=== PATIENT | male | born 1950 | race Caucasian/White ===

== ENCOUNTER 2017-11-13 08:50 | Inpatient (IN) ==
[2017-11-13] MEDS ORDERED: METOPROLOL TARTRATE 25 MG TABLET ONE (10:14)
[2017-11-13] MEDS ORDERED: HYDROmorphone 2 MG/1 ML VIAL ONE (10:14)
[2017-11-13] MEDS ORDERED: HYDROmorphone 2 MG/1 ML VIAL IV STA (10:15)
[2017-11-13] MEDS ORDERED: METOPROLOL TARTRATE 50 MG TABLET PO STA (10:16)
[2017-11-13] MEDS ORDERED: ONDANSETRON 4 MG/2 ML VIAL ONE (10:23)
[2017-11-13] MEDS ORDERED: diphenhydrAMINE CAP 25 MG CAPSULE PO PRN (10:26)
[2017-11-13] MEDS ORDERED: ACETAMINOPHEN 325 MG TABLET PO PRN (10:26)
[2017-11-13] MEDS ORDERED: guaiFENesin/DM ER 600-30 MG TABLET PO PRN (10:26)
[2017-11-13] MEDS ORDERED: ONDANSETRON 4 MG/2 ML VIAL IV PRN (10:26)
[2017-11-13] MEDS ORDERED: ONDANSETRON 4 MG/2 ML VIAL IV STA (10:27)
[2017-11-13] MEDS ORDERED: METOPROLOL TARTRATE 50 MG TABLET PO SCH (10:30)
[2017-11-13] MEDS: SODIUM CHLORIDE 0.9% 1,000 ML IV SCH ×2 (12:36→18:55)
[2017-11-13] MEDS: metroNIDAZOLE INJ 500 MG in PREMIX 1 EACH IV SCH ×2 (12:42→18:54)
[2017-11-13] MEDS: PANTOPRAZOLE 40 MG TABLET PO SCH (12:42)
[2017-11-13 12:43] LABS: Apearance,Urine CLEAR (Clear); Bilirubin,Urine Negative (Negative); Blood, Urine Small mg/dL (Negative); Glucose,Urine (UA) Negative (Negative); Ketones,Urine 5 mg/dL (Negative); Mucus,Urine Few /LPF (Occasional); Nitrite,Urine Negative (Negative); Protein,Urine Negative; RBC,Urine 1 /HPF (0-4); Squamous Epithelial Cell,Urine Occasional /HPF (0-10); Urine Color Yellow (Yellow); Urine Specific Gravity 1.014 (1.001-1.035); Urine Urobilinogen < 2.0 EU/DL (0.2-1.0); WBC,Urine 1 /HPF (0-6)
[2017-11-13] MEDS: DOCUSATE SODIUM 100 MG CAPSULE PO PRN (13:51)
[2017-11-13] MEDS: FLUTICASONE 50 MCG NASAL SPRAY 16 GM BOTTLE BOTH NARES SCH (13:51)
[2017-11-13] MEDS: ASPIRIN EC 81 MG TABLET PO SCH (13:51)
[2017-11-13] MEDS: AMPICILLIN/SULBACTAM 3,000 MG in SODIUM CHLORIDE 0.9% 100 ML IV SCH ×2 (15:09→20:30)
[2017-11-13] MEDS: MORPHINE 4 MG/1 ML VIAL IV PRN ×2 (16:32→21:09)
[2017-11-13] MEDS ORDERED: MELATONIN 3 MG TABLET PO PRN (21:00)
[2017-11-13] MEDS: ENOXAPARIN 40 MG/0.4 ML SYRINGE SUBCUT SCH (21:13)
[2017-11-13] MEDS: MONTELUKAST 10 MG TABLET PO SCH (21:13)
[2017-11-13] MEDS: LISINOPRIL 20 MG TABLET PO SCH (21:13)
[2017-11-13] MEDS: METOPROLOL TARTRATE 50 MG TABLET PO SCH (21:13)
[2017-11-13] MEDS: SIMVASTATIN 10 MG TABLET PO SCH (21:13)
[2017-11-14] MEDS: metroNIDAZOLE INJ 500 MG in PREMIX 1 EACH IV SCH ×4 (00:25→20:36)
[2017-11-14] MEDS: AMPICILLIN/SULBACTAM 3,000 MG in SODIUM CHLORIDE 0.9% 100 ML IV SCH ×3 (01:36→14:58)
[2017-11-14] MEDS: SODIUM CHLORIDE 0.9% 1,000 ML IV SCH ×3 (01:37→20:51)
[2017-11-14 06:33] LABS: Basophils % 0.3 % (0.0-0.8); Eosinophils # 0.2 10*3/uL (0.0-0.87); Eosinophils % 1.9 % (0.00-10.9); Hemoglobin 12.9 GM/DL (14.0-18.0); Immature Granulocytes % 0.2 %; Immature Granulocytes Absolute 0.02 #; Lymphocytes # 1.1 10*3/uL (1.4-4.0); Lymphocytes % 12.9 % (21.2-54.2); Mean Corpuscular HGB Conc 33.1 GM/DL (32-36); Mean Corpuscular Hemoglobin 30 PG (27-34); Mean Platelet Volume 10.4 FL (9.6-12.0); Monocytes # 0.9 10*3/uL (0.11-0.8); Monocytes % 10.6 % (1.7-12.7); Neutrophils # 6.5 10*3/uL (1.4-7.4); Neutrophils % 74.1 % (38.7-73.9); Platelet Count 170 T/CUMM (130-400); Red Blood Count 4.24 MC/CUMM (3.8-5.5); Red Cell Distribution Width 12.6 % (9.3-17.3); White Blood Count 8.8 T/CUMM (4-12)
[2017-11-14 07:06] LABS: Albumin 2.9 G/DL (3.4-5.0); Osmolality,Calculated 280.1 MOS/KG (273-304); Potassium 3.6 MMOL/L (3.5-5.1); Risk Ratio 2.48
[2017-11-14] MEDS: DOCUSATE SODIUM 100 MG CAPSULE PO PRN (09:12)
[2017-11-14] MEDS: ASPIRIN EC 81 MG TABLET PO SCH (09:12)
[2017-11-14] MEDS: LISINOPRIL 20 MG TABLET PO SCH ×2 (09:12→20:38)
[2017-11-14] MEDS: METOPROLOL TARTRATE 50 MG TABLET PO SCH ×2 (09:13→20:38)
[2017-11-14] MEDS: FLUTICASONE 50 MCG NASAL SPRAY 16 GM BOTTLE BOTH NARES SCH (09:13)
[2017-11-14] MEDS: PANTOPRAZOLE 40 MG TABLET PO SCH (09:16)
[2017-11-14] MEDS ORDERED: LEVOFLOXACIN INJ 750 MG in PREMIX 1 EACH IV SCH (16:00)
[2017-11-14] MEDS: ENOXAPARIN 40 MG/0.4 ML SYRINGE SUBCUT SCH (20:38)
[2017-11-14] MEDS: SIMVASTATIN 10 MG TABLET PO SCH (20:40)
[2017-11-14] MEDS: MONTELUKAST 10 MG TABLET PO SCH (20:40)
[2017-11-15] MEDS: metroNIDAZOLE INJ 500 MG in PREMIX 1 EACH IV SCH ×3 (02:39→13:25)
[2017-11-15] MEDS: SODIUM CHLORIDE 0.9% 1,000 ML IV SCH (06:00)
[2017-11-15] MEDS: LISINOPRIL 20 MG TABLET PO SCH (08:47)
[2017-11-15] MEDS: ASPIRIN EC 81 MG TABLET PO SCH (08:47)
[2017-11-15] MEDS: METOPROLOL TARTRATE 50 MG TABLET PO SCH (08:47)
[2017-11-15] MEDS: FLUTICASONE 50 MCG NASAL SPRAY 16 GM BOTTLE BOTH NARES SCH (08:48)
[2017-11-15] MEDS: PANTOPRAZOLE 40 MG TABLET PO SCH (08:48)
[2017-11-15 11:45] VITALS: BP 158/76
== END 2017-11-15 14:55 | disposition home or self-care (01) | DRG 392 ==
LOC: N.ED 08:50 → N.EDINP 09:28 → SUATTDRO 09:28 → N.EDINP 13:00 → N.4E 13:06
PROVIDERS: ADMIT Internal Medicine; ATTEND Internal Medicine